=== PATIENT | male | born 1955 | race African-American/Black ===

== ENCOUNTER 2017-03-16 18:23 | Emergency (ER) | payer OTHER ==
[~2017-03-16 18:23] MED LIST: ADVIL200 M3 PO; CLEOCIN PO; COMBIVENT MININEB INH; FLEXERIL PO; FLEXERIL10 MG PO; HYDROCHLOROTHIA25 MG PO; HYDROCODON-ACE1 EAC7 PO; IBUPROFEN800 MG PO; LORTAB 5-325 M1 EACH PO; MEDROL4 MG/DOSE- PO; MOBIC15 MG PO; MULTI VITAMIN1 EACH PO; NORVASC PO; PERCOCET10 PO; SYMBICORT INH; TYLENOL325 M1 PO; VICODIN 5/1 TAB 5/50 PO
== END 2017-03-16 19:30 | disposition home or self-care (01) ==
LOC: CFTX 18:23
DX: S33.5XXA Sprain of ligaments of lumbar spine, initial encounter (principal); I10 Essential (primary) hypertension; J45.909 Unspecified asthma, uncomplicated; F17.210 Nicotine dependence, cigarettes, uncomplicated; X50.0XXA Overexertion from strenuous movement or load, initial encounter; Y92.9 Unspecified place or not applicable
CPT/HCPCS: 96372; 99284; J1885

== ENCOUNTER 2017-04-15 07:38 | Emergency (ER) | payer OTHER ==
--- NOTE | ~2017-04-15 | CT52 ---
[facility] A Service of [facility] & [facility] RADIOLOGY TEXT RESULTS PATIENT: UQAN TENORIO LOCATION: [facility] : 55 UNIT #: [id number] AGE: [address]: Yuly Nelson APRN SEX: M ORDER DR: [id number] [facility] [address] [place], [place] [address] [id number] MR#: [id number] Acc #: [id number] NAME: QUAN TENORIO : 1955 SEX: M STUDY DATE/TIME: 04/15/2017 9:06 UNIT: [facility] ROOM: STUDY DESCRIPTION: CT Cervical Spine Wo Cont Attending Physician: Yuly Nelson A.P.R.N. Ordering Physician: Yuly Nelson A.P.R.N. Primary Care Physician: No Primary Care Physician MEDICAL IMAGING REPORT This report is preliminary unless electronic signature is present EXAM CT cervical spine without IV contrast COMPARISON None INDICATIONS A 62-year-old male with neck pain for 4 days. This is bilateral and is worse when turning head. No history of trauma. FINDINGS Axial CT imaging of the cervical spine was performed. Coronal sagittal reformats constructed. This CT exam was performed with one or more of the following radiation dose reduction techniques: automatic exposure control, adjustment of mA and/or kV according to patient size, and iterative reconstruction. Lack of IV contrast limits evaluation of adenopathy, vasculature and viscera. There is a right pleural effusion with a simple fluid density seen in the upper chest. This is of uncertain etiology. There is mild emphysema. Visualized airway is widely patent. There are calcifications in the bilateral cervical carotid arteries. Multilevel anterior osteophyte formation of the cervical spine, which is bridging. There is multilevel mild degenerative facet disease and uncinate hypertrophy of the cervical spine as well. There is disc height loss at C5-C6 where there is also a small posterior disc protrusion. There is degenerative endplate change at the level as well. There is mild bony neural foraminal narrowing on the right at C5-6. This primarily due to uncinate hypertrophy. Cervical spine is anatomically aligned. No evidence of acute fracture. There is approximately 25% anterior height [facility] A Service of [facility] & [facility] RADIOLOGY TEXT RESULTS PATIENT: QUAN TENORIO LOCATION: [facility] : 55 UNIT #: [id number] AGE: [address]: Yuly Nelson APRN SEX: M ORDER DR: loss of the C5 vertebral body, favored be chronic, perhaps in part related to the Schmorl node formation. IMPRESSION 1. No acute fracture, subluxation or suspicious osseous lesion of the cervical spine. 2. Multilevel mild degenerative facet disease and uncinate hypertrophy of the cervical spine. There is also disc height loss at C5-C6 with small posterior disc protrusion at this level. On the right C5-C6, there is mild bony neural foraminal narrowing primarily due to uncinate hypertrophy. 3. A sizable pleural effusion is seen in the right upper chest. This is of uncertain etiology. There is mild background of emphysema. 4. Bilateral minimal cervical carotid artery calcifications. Dictated by... Kiel Berry M.D. THIS IS AN ELECTRONICALLY VERIFIED REPORT Kiel Berry M.D. at 04/22/2017 3:41 PM Sofia TD: 04/15/2017 13:54 JOB #: [id number] MEDICAL IMAGING REPORT Page 1 of 1 COPY
== END 2017-04-15 11:58 | disposition home or self-care (01) ==
LOC: CED 07:38
DX: I10 Essential (primary) hypertension (principal); G89.29 Other chronic pain; M19.90 Unspecified osteoarthritis, unspecified site; M54.2 Cervicalgia; F17.210 Nicotine dependence, cigarettes, uncomplicated; Z91.14 Patient's other noncompliance with medication regimen
CPT/HCPCS: 72125; 96372; 99284; J1885

== ENCOUNTER 2017-06-30 11:32 | Emergency (ER) | payer OTHER ==
[~2017-06-30] VITALS: Ht 182.9 cm; Wt 76.2 kg
--- NOTE | ~2017-06-30 | EKG ---
PATIENT: QUAN TENORIO UNIT #: [id number] Ventricular Rate: 78 BPM Atrial Rate: 78 BPM P-R Interval: 172 ms QRS Duration: 94 ms Q-T Interval: 384 ms QTC Calculation(Bezet): 437 ms P [place]: 76 degrees Calculated R [place]: 26 degrees Calculated T [place]: 56 degrees Diagnosis Line: Normal sinus rhythm Diagnosis Line: Septal infarct (cited on or before 06-SEP-2016) Diagnosis Line: ST elevation, consider early repolarization, Diagnosis Line: pericarditis, or injury Diagnosis Line: Abnormal ECG Diagnosis Line: When compared with ECG of 21-NOV-2016 13:31, Diagnosis Line: No significant change was found Diagnosis Line: Confirmed by PAYTON AGEE MD ([id number]) on 06/30/2017 Diagnosis Line: 3:18:02 PM INTERPRETING MD: ANUEL HENRY
[2017-06-30 12:32] LABS: EOSINOPHIL% 0.7 % (0.0-7.0); HEMATOCRIT 38.8 % (38.0-50.0); HEMOGLOBIN 13.2 gm/dL (13.0-16.0); LYMPHOCYTE# 1.4 X10e3 (1.0-3.5); LYMPHOCYTE% 31.7 % (17.0-45.0); MEAN CELL VOLUME 96.6 FL (83-96); MEAN CORPUSCULAR HEMOGLOBIN 32.7 PG (28-34); MEAN CORPUSCULAR HGB CONC 33.9 g/dL (30-36); MEAN PLATELET VOLUME 9.6 FL (6.5-11.5); MONOCYTE# 0.5 X10e3 (0-1.0); MONOCYTE% 10.5 % (3.0-12.0); NEUTROPHIL# 2.5 X10e3 (1.5-7.1); NEUTROPHIL% 56.1 % (40-75); PLATELET COUNT 211 X10e3 (140-420); RED BLOOD COUNT 4.02 X10e (3.90-5.60); RED CELL DISTRIBUTION WIDTH 16.1 % (11.0-15.5); WHITE BLOOD COUNT 4.5 X10e3 (4.0-10.5)
[2017-06-30 12:34] LABS: DIFF IND NO
[2017-06-30 12:52] LABS: POC - CKMB 1.5 ng/mL (0.0-7.9); POC - TROPONIN <0.05 ng/mL (<=0.05)
[2017-06-30 13:05] LABS: URINE SOURCE CLEAN CATCH
[2017-06-30 13:15] LABS: URINE APPEARANCE CLEAR; URINE BILIRUBIN NEG (NEG); URINE BLOOD NEG (NEG); URINE COLOR YELLOW; URINE GLUCOSE NEG (NEG); URINE KETONE NEG (NEG); URINE LEUKOCYTE ESTERASE NEG (NEG); URINE NITRATE NEG (NEG); URINE PH 5.5 (5-8); URINE PROTEIN NEG (NEG); URINE SPECIFIC GRAVITY 1.006 (1.003-1.035); URINE UROBILINOGEN 0.2 MG/DL (NEG)
[2017-06-30 13:23] LABS: CULTURE INDICATED? NO
[2017-06-30 14:07] LABS: BILIRUBIN, DIRECT 0.1 mg/dL (0.0-0.2); BILIRUBIN,INDIRECT 0.4 mg/dL (0.0-0.9); BILIRUBIN,TOTAL 0.5 mg/dL (0.2-2.0); BUN/CREATININE RATIO 5.55; CALCIUM SERUM 8.9 mg/dL (8.4-10.2); CREATININE SERUM 0.9 mg/dL (0.6-1.4); GLOM FILT RATE Estimated 105.7 mL/min (>60); PROTEIN TOTAL SERUM 8.9 g/dL (6.0-8.3)
== END 2017-06-30 14:20 | disposition home or self-care (01) ==
LOC: CED 11:32
PROVIDERS: Emergency Medicine
DX: I10 Essential (primary) hypertension (principal); F17.200 Nicotine dependence, unspecified, uncomplicated
CPT/HCPCS: 36415; 80048; 80076; 81003; 82553; 82947; 84484; 85025; 93005; 99284

== ENCOUNTER 2017-06-30 23:40 | Emergency (ER) | payer OTHER ==
[~2017-06-30] VITALS: Ht 182.9 cm; Wt 76.7 kg
--- NOTE | ~2017-06-30 | CR127 ---
[facility] A Service of [facility] & [facility] RADIOLOGY TEXT RESULTS PATIENT: NAWAF TENORIO LOCATION: [facility] : 55 UNIT #: [id number] AGE: [address]: NAWAF STEVENS APRN SEX: M ORDER DR: [id number] [facility] [address] [place], [place] [address] [id number] E MR#: [id number] Acc #: [id number] NAME: NAWAF TENORIO : 1955 SEX: M STUDY DATE/TIME: 07/01/2017 05:11 UNIT: [facility] ROOM: STUDY DESCRIPTION: CR Foot Complete Min 3 View Rt Attending Physician: Nawaf Stevens Aprn Ordering Physician: Nawaf Stevens Aprn Primary Care Physician: Primary Care Physician No MEDICAL IMAGING REPORT This report is preliminary unless electronic signature is present EXAM Right foot, 07/01 at 05:11 INDICATION Foot pain and soft tissue swelling for 2 days. No trauma. FINDINGS Three views of the right foot were obtained. No comparison. No acute fracture or malalignment is seen. Faint arterial calcifications are present. There is no soft tissue gas. IMPRESSION No acute findings in the foot. Dictated by... Allen Morales Jr., M.D. THIS IS AN ELECTRONICALLY VERIFIED REPORT Allen Morales Jr., M.D. at 07/02/2017 5:52 AM PRATEEK/judith TD: 07/01/2017 10:39 JOB #: [id number] MEDICAL IMAGING REPORT Page 1 of 1 COPY
[2017-07-02] MEDS ORDERED: ZESTRIL10 MG PO (01:34)
== END 2017-07-01 06:10 | disposition home or self-care (01) ==
LOC: CED 23:40
DX: S96.911A Strain of unspecified muscle and tendon at ankle and foot level, right foot, initial encounter (principal); I10 Essential (primary) hypertension; J45.909 Unspecified asthma, uncomplicated; Z79.899 Other long term (current) drug therapy; F17.210 Nicotine dependence, cigarettes, uncomplicated; X50.1XXA Overexertion from prolonged static or awkward postures, initial encounter; Y92.009 Unspecified place in unspecified non-institutional (private) residence as the place of occurrence of the external cause
CPT/HCPCS: 73630; 99283

== ENCOUNTER 2017-07-01 17:32 | Inpatient (IN) | payer OTHER ==
[~2017-07-01] VITALS: Ht 182.9 cm; Wt 78.0 kg
--- NOTE | ~2017-07-01 | DS ---
Unit #: [id number] #: [id number] Patient: QUAN TENORIO [id number] [address] [address] [id number] I MR#: [id number] NAME: QUAN TENORIO ROOM: 314 Age: 62 Sex: M Admission Date: 07/01/2017 : 1955 Discharge Date: Attending Physician: Kylah Avendano M.D. Primary Care Physician: No Primary Care Physician DISCHARGE SUMMARY DISCHARGE DIAGNOSES 1. Septic shock, present on admission. 2. Sepsis. 3. Acute gastroenteritis. 4. Acute kidney injury. 5. Metabolic acidosis. 6. Hypertension. 7. Benign prostatic hypertrophy. 8. Urinary tract infection, cultures negative. 9. Hypomagnesemia. 10. Smoking. 11. History of pneumonia. 12. History of remote asthma. 13. History of tuberculosis at age [age] requiring abdominal surgery. 14. Scrotal abscess, status post incision and drainage. 15. Varicose vein surgery. CONSULTATION None. PROCEDURES None. LAB DATA Sodium 139, potassium 3.6, creatinine 1.2, magnesium 1.5. Urine culture negative. Stool culture negative. No C. diff. WBC 4.4, hemoglobin 10.6, platelets 128. Blood cultures negative. CT of the abdomen and pelvis shows thickening of multiple loops of small bowel, likely infectious or inflammatory. CT of the head normal. Lactic acid 1.4, blood cultures negative. ALLERGIES None. DISCHARGE MEDICATIONS 1. Flomax 0.4 p.o. daily. 2. Norvasc 5 mg daily. 3. Ciprofloxacin 500 p.o. b.i.d. Unit #: [id number] #: [id number] Patient: QUAN TENORIO 4. Flagyl 500 p.o. three times daily. HOSPITALIZATION COURSE 62-year-old admitted because of diarrhea and abdominal pain. Septic shock from sepsis from acute gastroenteritis. Patient received IV fluids. Currently blood pressure stable. Lactic acid stable. Acute gastroenteritis, likely infectious. Patient received IV Zosyn. Patient will be discharged on Ciprofloxacin and Flagyl. Currently, patient afebrile. WBC normal. He is tolerating diet okay. He did have diarrhea, currently under control. Acute kidney injury, likely prerenal from volume loss from diarrhea. Patient received IV fluids, currently stable. I am going to hold off on his lisinopril. Hypertension, uncontrolled, secondary from holding lisinopril. Started Norvasc. Gave prescription. Urinary retention, present on admission, on Flomax. Continue Flomax. Left renal cyst, benign versus hemorrhagic benign cyst. Follow outpatient. Anemia, chronic iron deficiency. No active bleeding. Urinary tract infection. Cultures negative. Continue ciprofloxacin. Discharge home. Follow with family physician in one week time. Discharge time taken is 32 minutes. Dictated by... Kylah Avendano M.D. RODRIGO/brenda TD: 07/04/2017 10:48 JOB #: [id number] DISCHARGE SUMMARY Page 1 of 1 X Kylah Avendano MD X DISCHARGE SUMMARY
--- NOTE | ~2017-07-01 | CR72 ---
[facility] A Service of [facility] & [facility] RADIOLOGY TEXT RESULTS PATIENT: QUAN TENORIO LOCATION: [facility] 314-01 : 55 UNIT #: [id number] AGE: [address]: Kylah Avendano MD SEX: M ORDER DR: [id number] [facility] [address] [place], [place] [address] [id number] I MR#: [id number] Acc #: [id number] NAME: QUAN TENORIO : 1955 SEX: M STUDY DATE/TIME: 07/01/2017 18:52 [facility]: [facility] STUDY DESCRIPTION: CR Chest Single View Portable Attending Physician: Kylah Avendano M.D. Ordering Physician: Lino Davidson M.D. Primary Care Physician: Primary Care Physician No MEDICAL IMAGING REPORT This report is preliminary unless electronic signature is present EXAM Portable chest HISTORY Dizzy and congestion for 1 week. FINDINGS The cardiac size and pulmonary vascularity are normal. Small right pleural effusion. Minimal linear atelectasis or scarring in the lateral right mid and lower lung. Remainder of the lungs are clear. IMPRESSION 1. Small right pleural effusion. 2. No evidence of active disease in the lungs. Dictated by... Vipin Mansfield M.D. THIS IS AN ELECTRONICALLY VERIFIED REPORT Vipin Mansfield M.D. at 07/02/2017 11:44 PM DFZa/som TD: 07/02/2017 08:16 JOB #: [id number] MEDICAL IMAGING REPORT Page 1 of 1 COPY
--- NOTE | ~2017-07-01 | EKG ---
PATIENT: QUAN TENORIO UNIT #: [id number] Ventricular Rate: 90 BPM Atrial Rate: 90 BPM P-R Interval: 162 ms QRS Duration: 88 ms Q-T Interval: 376 ms QTC Calculation(Bezet): 459 ms P [place]: 73 degrees Calculated R [place]: 27 degrees Calculated T [place]: 57 degrees Diagnosis Line: Normal sinus rhythm Diagnosis Line: Possible Left atrial enlargement Diagnosis Line: Left ventricular hypertrophy Diagnosis Line: Abnormal ECG Diagnosis Line: When compared with ECG of 30-JUN-2017 12:09, Diagnosis Line: No significant change was found Diagnosis Line: Confirmed by DAVID GUPTA MD ([id number]) on Diagnosis Line: 07/01/2017 9:50:12 PM INTERPRETING MD: CED
--- NOTE | ~2017-07-01 | CT4 ---
[facility] A Service of [facility] & [facility] RADIOLOGY TEXT RESULTS PATIENT: QUAN TENORIO LOCATION: [facility] 314-01 : 55 UNIT #: [id number] AGE: [address]: Kylah Avendano MD SEX: M ORDER DR: [id number] [facility] [address] [place], [place] [address] [id number] I MR#: [id number] Acc #: [id number] NAME: QUAN TENORIO : 1955 SEX: M STUDY DATE/TIME: 07/01/2017 20:03 UNIT: [facility] ROOM: 314 STUDY DESCRIPTION: CT Abd and Pelv Wo Cont Attending Physician: Kylah Avendano M.D. Ordering Physician: Lino Davidson M.D. Primary Care Physician: Primary Care Physician No MEDICAL IMAGING REPORT This report is preliminary unless electronic signature is present EXAM CT abdomen and pelvis without contrast HISTORY Nausea and vomiting today. TECHNIQUE This CT exam was performed with one or more of the following radiation dose reduction techniques: automatic exposure control, adjustment of mA and/or kV according to patient size, and iterative reconstruction. FINDINGS CT abdomen and pelvis was performed without contrast. There is trace right pleural effusion with minimal linear atelectasis or scarring in the right middle lobe and right lower lobe. Small amount of perihepatic ascites. Probable sludge in the gallbladder. No gallbladder distension. No biliary dilatation. Spleen is atrophic, and is smaller than on CT 01/16/2012. The pancreas and adrenal glands are normal. Right kidney is normal. Hyperdense exophytic mass along the posterior lower pole left kidney measures 2.2 x 1.8 cm, and is smaller than on CT 01/16/2012 when it measured 2.4 cm x 2.4 cm. This is likely a hemorrhagic or proteinaceous cyst. There is mild diffuse wall thickening of multiple segments of small bowel in the abdomen and pelvis, but no bowel dilatation. No abscess. CT PELVIS: Moderate free fluid in the pelvis. No bowel dilatation. The urinary bladder is unremarkable. IMPRESSION 1. Mild diffuse wall thickening of multiple loops of small bowel in the left abdomen, lower abdomen and pelvis. No associated bowel dilatation. This could be secondary to infectious or inflammatory STS. [facility] A Service of [facility] & [facility] RADIOLOGY TEXT RESULTS PATIENT: QUAN TENORIO LOCATION: [facility] 314-01 : 55 UNIT #: [id number] AGE: [address]: Kylah Avendano MD SEX: M ORDER DR: enteritis. No abscess. Small amount of ascites in the abdomen and moderate amount of ascites in the pelvis. 2. Slight interval decrease in the size of the hyperdense exophytic mass lower pole left kidney posteriorly. This favors benign hemorrhagic or proteinaceous cyst. 3. Trace right pleural effusion. Dictated by... Vipin Mansfield M.D. THIS IS AN ELECTRONICALLY VERIFIED REPORT Vipin Mansfield M.D. at 07/02/2017 11:44 PM YUDITH/judith TD: 07/02/2017 08:30 JOB #: [id number] MEDICAL IMAGING REPORT Page 1 of 1 COPY
--- NOTE | ~2017-07-01 | HP ---
Unit #: [id number] #: [id number] Patient: QUAN TENORIO [id number] [address] [place], [place] [address] [id number] E MR#: [id number] NAME: QUAN TENORIO ROOM: Age: 62 Sex: M Admission Date: 07/01/2017 : 1955 Attending Physician: Lino Davidson M.D. Primary Care Physician: No Primary Care Physician HISTORY AND PHYSICAL CHIEF COMPLAINT Gastroenteritis with intractable symptoms, acute kidney injury, hypotension. HISTORY This pleasant 62-year-old male with a history of an elevated blood pressure in the past is admitted for hypotension. The patient states that he felt diaphoretic two days ago. He was at his adventism, and there was a nurse present who took his blood pressure. It is reported that his blood pressure was 210/100. He was seen in this emergency department 06/30 for elevated blood pressure. I believe he was started on lisinopril. He was then seen again in this emergency department early this morning for complaints of right foot pain. After returning home early this morning he developed intractable nonbloody nausea and vomiting, then had diarrhea with a small amount of blood after wiping himself; noted abdominal discomfort with the above. He felt very lightheaded, as if he was going to pass out. He came back to this emergency department with a heart rate of 115, blood pressure is 70/41. He has since been bolused with IV fluids with improvement of his blood pressure. Labs are notable for acute kidney injury with a creatinine of 2.6 up from 0.9 yesterday. Lactic acid is elevated at 4.2, white blood count is 7.7. Patient denies ill contacts, or eating anything out of the ordinary, does have some difficulty voiding, which he believes is secondary to BPH. PAST MEDICAL HISTORY 1. Community-acquired pneumonia, admitted in November. The patient underwent bronchoscopy, only revealing thick secretions. 2. History of elevated blood pressure in the past. 3. Remote history of asthma. 4. Tuberculosis at age [age] requiring abdominal surgery. 5. I/D of a scrotal abscess. 6. Abdominal surgery for tuberculosis. 7. Cyst removed. 8. Varicose vein surgery. ALLERGIES No known drug allergies. HOME MEDICATIONS Lisinopril, I believe this was 10 mg daily started yesterday. Unit #: [id number] #: [id number] Patient: QUAN TENORIO FAMILY HISTORY CVA, hypertension, lung cancer. SOCIAL HISTORY The patient lives with his brother. He smokes one-half pack per day of tobacco, drinks occasional beer. REVIEW OF SYSTEMS Notable for nausea, vomiting, diarrhea, near syncope, DJD, tuberculosis, elevated blood pressure, abovementioned surgeries, some difficulty voiding. All other systems were reviewed and are otherwise negative. PHYSICAL EXAMINATION GENERAL: Pleasant, thin, 62-year-old male currently in no acute distress. VITAL SIGNS: Temperature 97.4. Pulse 115. Respirations 16. Initial blood pressure is 70/41. Current blood pressure is 120/71. O2 saturation is 100% on room air. HEENT: Eyes PERRLA. Extraocular muscles are intact. Pharynx is benign. NECK: Supple, without adenopathy or thyromegaly. CHEST: Clear. CARDIAC: Normal S1 and S2, without S3, S4 or murmur. ABDOMEN: Bowel sounds are somewhat diminished. Abdomen is nontender. No hepatosplenomegaly or masses. EXTREMITIES: Without cyanosis, clubbing or edema. Pedal pulses are diminished. No ulcers on the feet. NEUROLOGIC EXAM: Patient is awake, alert, oriented. Cranial nerves are intact. Equal strength throughout. DIAGNOSTIC STUDIES LABORATORY: Hematocrit is 50, up from 38.8, likely related to hemoconcentration from dehydration, normal white count, platelet count. SMA-12: Glucose 143, creatinine 2.6 up, from a creatinine of 0.9 yesterday, CO2 is 21, protein 8.7, lactic acid 4.2. Alcohol level is negligible. Urine tox screen is negative. Urinalysis positive protein, glucose and blood with 10 to 25 red cells, 10 to 25 white cells and 3+ bacteria. Cardiac markers are negative. CARDIOVASCULAR: EKG normal sinus rhythm, rate 90, Q V1 and V2. IMAGING: CT scan of the abdomen and pelvis mild diffuse small bowel wall thickening in the left abdomen. Small amount of ascites. Of note the previous noted left renal mass is smaller, suggesting a benign etiology. Chest x-ray small right pleural effusion. CT of the head is negative. ASSESSMENT 1. Gastroenteritis with intractable symptoms. 2. Acute kidney injury, likely multifactorial related to dehydration, lisinopril and hypotension. 3. History of elevated blood pressure with hypotension. Patient was just started on lisinopril. 4. Benign prostatic hypertrophy. 5. Rule out urinary tract infection. 6. Tobacco use. PLANS Unit #: [id number] #: [id number] Patient: QUAN TENORIO 1. IV fluids and supportive treatment. 2. Levaquin pending stool and urine cultures. 3. Check post-void bladder scan. Patient may benefit from Flomax depending on the results. 4. Discontinue lisinopril and monitor blood pressure. Dictated by Latonia Merchant M.D. AML/cf TD: 07/01/2017 23:48 JOB #: [id number] HISTORY AND PHYSICAL Page 1 of 1 X Latonia Merchant MD X HISTORY AND PHYSICAL
--- NOTE | ~2017-07-01 | CT71 ---
[facility] A Service of [facility] RADIOLOGY TEXT RESULTS PATIENT: QUAN TENORIO LOCATION: [facility] 314- : 55 UNIT #: [id number] AGE: [address]: Kylah Avendano MD SEX: M ORDER DR: [id number] [id number] [place], [place] [address] [id number] I MR#: [id number] Acc #: [id number] NAME: QUAN TENORIO : 1955 SEX: M STUDY DATE/TIME: 07/01/2017 20:01 UNIT: A U ROOM: [facility] STUDY DESCRIPTION: CT Head Wo Contrast Attending Physician: Kylah Avendano M.D. Ordering Physician: Lino Davidson M.D. Primary Care Physician: Primary Care Physician No MEDICAL IMAGING REPORT This report is preliminary unless electronic signature is present EXAM CT brain without contrast HISTORY Headache today. Nausea and vomiting. FINDINGS Axial noncontrast images were obtained from the skull base to the vertex. This CT examination was performed with one or more of the following radiation dose reduction techniques: automatic exposure control, adjustment of mA and/or kV according to patient size, and iterative reconstruction. Ventricular size and configuration are normal. There is no evidence of acute infarct or hemorrhage. There are no extra-axial fluid collections. No mass lesion or mass effect is seen. There are no skull fractures. IMPRESSION Normal noncontrast head CT. Dictated by... Vipin Mansfield M.D. THIS IS AN ELECTRONICALLY VERIFIED REPORT Vipin Mansfield M.D. at 07/02/2017 11:44 PM YUDITH/som TD: 07/02/2017 08:31 JOB #: [id number] [facility] A Service of [facility] & [facility] RADIOLOGY TEXT RESULTS PATIENT: QUAN TENORIO LOCATION: [facility] 314- : 55 UNIT #: [id number] AGE: [address]: Kylah Avendano MD SEX: M ORDER DR: MEDICAL IMAGING REPORT Page 1 of 1 COPY
[2017-07-01 18:39] LABS: POC - CKMB 1.4 ng/mL (0.0-7.9); POC - TROPONIN <0.05 ng/mL (<=0.05)
[2017-07-01 19:10] LABS: BASOPHIL% 0.2 % (0-2.5); EOSINOPHIL% 0.1 % (0.0-7.0); HEMATOCRIT 50.4 % (38.0-50.0); LYMPHOCYTE# 0.9 X10e3 (1.0-3.5); LYMPHOCYTE% 11.1 % (17.0-45.0); MEAN CORPUSCULAR HEMOGLOBIN 33.2 PG (28-34); MEAN CORPUSCULAR HGB CONC 33.5 g/dL (30-36); MONOCYTE# 0.5 X10e3 (0-1.0); MONOCYTE% 6.6 % (3.0-12.0); NEUTROPHIL# 6.3 X10e3 (1.5-7.1); RED BLOOD COUNT 5.09 X10e (3.90-5.60); RED CELL DISTRIBUTION WIDTH 16.1 % (11.0-15.5)
[2017-07-01 19:13] LABS: INR 1.1; PARTIAL THROMBOPLASTIN TIME 23.6 SECONDS (23.5-31.3); PROTHROMBIN TIME (PATIENT) 11.5 SECONDS (10.0-11.7)
[2017-07-01 19:27] LABS: HEMOGLOBIN 16.9 gm/dL (13.0-16.0); WHITE BLOOD COUNT 7.7 X10e3 (4.0-10.5)
[2017-07-01 19:29] LABS: ALBUMIN SERUM 3.9 g/dL (3.5-5.0); BILIRUBIN, DIRECT 0.1 mg/dL (0.0-0.2); BILIRUBIN,INDIRECT 0.4 mg/dL (0.0-0.9); BILIRUBIN,TOTAL 0.5 mg/dL (0.2-2.0); BUN/CREATININE RATIO 7.3; CALCIUM SERUM 8.9 mg/dL (8.4-10.2); CREATININE SERUM 2.6 mg/dL (0.6-1.4); GLOM FILT RATE Estimated 29.3 mL/min (>60); POTASSIUM 4.7 mmol/L (3.5-5.1); PROTEIN TOTAL SERUM 8.7 g/dL (6.0-8.3)
[2017-07-01 19:30] LABS: DIFF IND NO; PLATELET COUNT 180 X10e3 (140-420)
[2017-07-01 19:59] LABS: POC - CKMB 1.3 ng/mL (0.0-7.9); POC - TROPONIN <0.05 ng/mL (<=0.05)
[2017-07-01 21:11] LABS: URINE SOURCE CLEAN CATCH
[2017-07-01 21:16] LABS: URINE APPEARANCE HAZY; URINE BLOOD 4+ (NEG); URINE COLOR YELLOW; URINE GLUCOSE 50 MG/DL (NORM); URINE KETONE NEG (NEG); URINE LEUKOCYTE ESTERASE NEG (NEG); URINE NITRATE NEG (NEG); URINE PROTEIN 2+ (NEG); URINE SPECIFIC GRAVITY 1.015 (1.003-1.035); URINE UROBILINOGEN NORM (NORM)
[2017-07-01 21:24] LABS: URINE BILIRUBIN NEG (NEG)
[2017-07-01 21:27] LABS: CULTURE INDICATED? YES; URINE BACTERIA AUWI 3+ (NEGATIVE); URINE SQUAMOUS EPITHELIAL CELL OCCAS /[HPF]
[2017-07-01 21:28] LABS: U HYALINE CASTS AUWI 0-2 /[LPF]; URINE MUCUS PRESENT
[2017-07-01 21:59] LABS: AMPHETAMINE NEG (NEG); BARBITURATES NEG (NEG); BENZODIAZEPINES NEG (NEG); COCAINE NEG (NEG); MARIJUANA NEG (NEG); OPIATES NEG (NEG); TRICYCLIC ANTIDEPRESSANTS NEG (NEG); U METHADONE NEG (NEG)
[2017-07-02] MEDS ORDERED: ZESTRIL10 MG PO (01:34)
[2017-07-02 05:00] LABS: HEMATOCRIT 38.1 % (38.0-50.0); HEMOGLOBIN 12.7 gm/dL (13.0-16.0); MEAN CELL VOLUME 98.2 FL (83-96); MEAN CORPUSCULAR HEMOGLOBIN 32.7 PG (28-34); MEAN CORPUSCULAR HGB CONC 33.3 g/dL (30-36); MEAN PLATELET VOLUME 10.3 FL (6.5-11.5); RED BLOOD COUNT 3.88 X10e (3.90-5.60); RED CELL DISTRIBUTION WIDTH 15.9 % (11.0-15.5); WHITE BLOOD COUNT 8.2 X10e3 (4.0-10.5)
[2017-07-02 05:52] LABS: BUN/CREATININE RATIO 8.33; CALCIUM SERUM 8.4 mg/dL (8.4-10.2); GLOM FILT RATE Estimated 24.7 mL/min (>60); POTASSIUM 4.3 mmol/L (3.5-5.1)
[2017-07-02 06:13] LABS: %MB 2.1 % (0.0-4.0); MB 1.4 ng/ml
[2017-07-02 15:32] LABS: HEMATOCRIT 37.6 % (38.0-50.0); HEMOGLOBIN 12.3 gm/dL (13.0-16.0); MEAN CELL VOLUME 99.1 FL (83-96); MEAN CORPUSCULAR HEMOGLOBIN 32.5 PG (28-34); MEAN CORPUSCULAR HGB CONC 32.8 g/dL (30-36); RED BLOOD COUNT 3.79 X10e (3.90-5.60); RED CELL DISTRIBUTION WIDTH 16.3 % (11.0-15.5); WHITE BLOOD COUNT 6.7 X10e3 (4.0-10.5)
[2017-07-03 05:27] LABS: HEMATOCRIT 33.6 % (38.0-50.0); HEMOGLOBIN 10.9 gm/dL (13.0-16.0); MEAN CELL VOLUME 99.1 FL (83-96); MEAN CORPUSCULAR HEMOGLOBIN 32.1 PG (28-34); MEAN CORPUSCULAR HGB CONC 32.4 g/dL (30-36); MEAN PLATELET VOLUME 10.3 FL (6.5-11.5); RED BLOOD COUNT 3.39 X10e (3.90-5.60); RED CELL DISTRIBUTION WIDTH 15.7 % (11.0-15.5); WHITE BLOOD COUNT 5.3 X10e3 (4.0-10.5)
[2017-07-03 06:01] LABS: BUN/CREATININE RATIO 10.62; CALCIUM SERUM 8.6 mg/dL (8.4-10.2); CREATININE SERUM 1.6 mg/dL (0.6-1.4); GLOM FILT RATE Estimated 52.8 mL/min (>60); MAGNESIUM 1.7 mg/dL (1.6-3.0)
[2017-07-04 05:20] LABS: HEMATOCRIT 30.9 % (38.0-50.0); HEMOGLOBIN 10.6 gm/dL (13.0-16.0); MEAN CELL VOLUME 97.4 FL (83-96); MEAN CORPUSCULAR HEMOGLOBIN 33.2 PG (28-34); MEAN CORPUSCULAR HGB CONC 34.1 g/dL (30-36); MEAN PLATELET VOLUME 9.3 FL (6.5-11.5); RED BLOOD COUNT 3.18 X10e (3.90-5.60); RED CELL DISTRIBUTION WIDTH 15.5 % (11.0-15.5); WHITE BLOOD COUNT 4.4 X10e3 (4.0-10.5)
[2017-07-04 07:15] LABS: BUN/CREATININE RATIO 7.5; CALCIUM SERUM 8.6 mg/dL (8.4-10.2); CREATININE SERUM 1.2 mg/dL (0.6-1.4); GLOM FILT RATE Estimated 74.7 mL/min (>60); MAGNESIUM 1.5 mg/dL (1.6-3.0); POTASSIUM 3.6 mmol/L (3.5-5.1)
[2017-07-04] MEDS ORDERED: FLOMAX0.4 M1 PO (11:51)
[2017-07-04] MEDS ORDERED: CIPRO250 M1 PO (11:53)
[2017-07-04] MEDS ORDERED: FLAGYL250 M1 PO (11:54)
[2017-07-04] MEDS ORDERED: NORVASC2.5 MG PO (11:55)
== END 2017-07-04 13:34 | disposition home or self-care (01) | DRG 871 ==
LOC: CED 17:32 → C3A PCU 23:15 → CEDOF 23:15 → CED 23:24 → CEDOF 23:24 → C3A PCU 07-02 00:29
PROVIDERS: Emergency Medicine; Internal Medicine
DX: A41.9 Sepsis, unspecified organism (principal); R65.21 Severe sepsis with septic shock; N17.9 Acute kidney failure, unspecified; E87.2 Acidosis; A09 Infectious gastroenteritis and colitis, unspecified; N39.0 Urinary tract infection, site not specified; F17.210 Nicotine dependence, cigarettes, uncomplicated; E86.0 Dehydration; N40.1 Benign prostatic hyperplasia with lower urinary tract symptoms; R33.8 Other retention of urine; J45.909 Unspecified asthma, uncomplicated; I10 Essential (primary) hypertension
CPT/HCPCS: 36415; 70450; 71010; 74176; 80048; 80076; 80307; 81003; 82550; 82553; 83605; 83735; 84484; 85025; 85027; 85610; 85730; 87040; 87045; 87086; 87177; 87209; 87427; 87493; 87899; 93005; 96361; 96374; 99291; 99406; G0480; J1956; J2405; J2543; J3370